=== PATIENT | female | born 1935 | race African-American/Black ===

== ENCOUNTER 2021-05-24 15:51 | Inpatient (IN) ==
[2021-05-24] MEDS ORDERED: ONDANSETRON 4 MG/2 ML VIAL ONE (16:15)
[2021-05-24] MEDS ORDERED: NITROGLYCERIN 2% OINT 1 INCH/GM PACK TOP ONE (16:19)
[2021-05-24] MEDS ORDERED: MORPHINE 4 MG/1 ML VIAL ONE (16:20)
[2021-05-24] MEDS ORDERED: MORPHINE 4 MG/1 ML VIAL IV STA (16:25)
[2021-05-24] MEDS ORDERED: NITROGLYCERIN 2% OINT 1 INCH/GM PACK TOP STA (16:25)
[2021-05-24 16:32] LABS: ABG Base Excess -5.6 MMOL/L (-2.5-2.5); ABG HCO3 19.7 MMOL/L (20-26); ABG Oxygen Saturation 88.3 % (95-100); ABG PCO2 64.8 MM HG (35-48); ABG PO2 73.4 MM HG (80-95); ABG TCO2 22.6 MMOL/L (23-27)
[2021-05-24 16:34] LABS: ABG PH 7.172 (7.35-7.45)
[2021-05-24] MEDS ORDERED: FUROSEMIDE 100 MG/10 ML VIAL IV STA (16:39)
[2021-05-24] MEDS ORDERED: ROCURONIUM 100 MG/10 ML VIAL IV ONE (16:50)
[2021-05-24] MEDS ORDERED: ETOMIDATE 20 MG/10 ML VIAL IV ONE (16:50)
[2021-05-24] MEDS ORDERED: ROCURONIUM 100 MG/10 ML VIAL IV STA (17:19)
[2021-05-24] MEDS ORDERED: ONDANSETRON 4 MG/2 ML VIAL IV STA (17:19)
[2021-05-24] MEDS ORDERED: ETOMIDATE 20 MG/10 ML VIAL IV STA (17:19)
[2021-05-24 17:23] LABS: Basophils % 0.3 % (0.0-0.8); Eosinophils # 0.3 10*3/uL (0.0-0.87); Eosinophils % 3.1 % (0.00-10.9); Hematocrit 27.2 VOL% (35.7-47.0); Hemoglobin 8.5 GM/DL (12.0-16.0); Immature Granulocytes % 0.4 %; Immature Granulocytes Absolute 0.04 #; Lymphocytes # 0.6 10*3/uL (1.4-4.0); Lymphocytes % 5.3 % (21.3-54.2); Mean Corpuscular HGB Conc 31.3 GM/DL (32-36); Mean Corpuscular Volume 102.6 FL (87-102); Mean Platelet Volume 10.5 FL (9.6-12.0); Monocytes % 3.1 % (1.7-12.7); Neutrophils % 87.8 % (38.7-73.9); Platelet Count 199 T/CUMM (130-400); Red Blood Count 2.65 MC/CUMM (3.8-5.5); Red Cell Distribution Width 15.9 % (9.3-17.3); White Blood Count 10.6 T/CUMM (4-12)
[2021-05-24 17:42] LABS: INR 1.3; PT Patient Result 13.9 SECS (10.5-12.0)
[2021-05-24] MEDS ORDERED: ALBUTEROL 2.5 MG/3 ML NEB RESP TX PRN (17:42)
[2021-05-24] MEDS ORDERED: ACETAMINOPHEN 325 MG TABLET PO PRN (17:42)
[2021-05-24] MEDS ORDERED: LACTULOSE 20 GM/30 ML UDCUP PO PRN (17:42)
[2021-05-24 17:43] LABS: Albumin 3.4 G/DL (3.4-5.0); Bilirubin,Total 0.5 MG/DL (0.2-1.0); Calcium 8.3 MG/DL (8.5-10.1); Osmolality,Calculated 303.4 MOS/KG (273-304); Potassium 4.1 MMOL/L (3.5-5.1); Total Protein 7.3 G/DL (6.4-8.2)
[2021-05-24 18:02] LABS: ABG HCO3 21.9 MMOL/L (20-26); ABG PCO2 32.7 MM HG (35-48); ABG PH 7.414 (7.35-7.45); ABG TCO2 19.4 MMOL/L (23-27)
[2021-05-24] MEDS: methylPREDNISolone SOD SUC 40 MG/1 ML VIAL IV SCH (18:05)
[2021-05-24] MEDS: PANTOPRAZOLE 40 MG VIAL IV SCH (18:08)
[2021-05-24 18:17] LABS: Bacteria,Urine Occasional /HPF (Few); Bilirubin,Urine Negative (Negative); Blood, Urine Negative (Negative); Glucose,Urine (UA) 50 mg/dL (Negative); Hyaline Casts,Urine 1 /LPF (0-3); Ketones,Urine Negative (Negative); Mucus,Urine Occasional /LPF (Occasional); Nitrite,Urine Negative (Negative); Protein,Urine 100 MG/DL; RBC,Urine 1 /HPF (0-4); Squamous Epithelial Cell,Urine Occasional /HPF (0-10); Urine Appearance Slightly Hazy (Clear); Urine Color Yellow (Yellow); Urine Specific Gravity 1.011 (1.001-1.035); Urine Urobilinogen < 2.0 EU/DL (0.2-1.0)
[2021-05-24] MEDS ORDERED: FUROSEMIDE 100 MG/10 ML VIAL IV ONE (18:18)
[2021-05-24] MEDS ORDERED: MAGNESIUM SULF RIDER 2 GM/50 ML PREMIX IV PRN (18:18)
[2021-05-24] MEDS ORDERED: MAGNESIUM SULF RIDER 4 GM/100 ML PREMIX IV PRN (18:18)
[2021-05-24] MEDS ORDERED: FUROSEMIDE 40 MG/4 ML VIAL IV STA (18:21)
[2021-05-24] MEDS ORDERED: HEPARIN DRIP 25,000 UNITS/500 ML PREMIX IV SCH (18:30)
[2021-05-24] MEDS ORDERED: HEPARIN 5,000 UNIT/1 ML VIAL SUBCUT SCH (18:30)
[2021-05-24] MEDS: ALBUTEROL/IPRATROPIUM 3 ML NEB RESP TX SCH (19:51)
[2021-05-24] MEDS: SODIUM BICARBONATE 650 MG TABLET PO SCH (20:12)
[2021-05-24] MEDS: NIFEdipine 10 MG CAPSULE PO SCH (20:12)
[2021-05-24] MEDS: hydrALAZINE 20 MG/1 ML VIAL IV PRN (20:12)
[2021-05-24] MEDS: carvediloL 25 MG TABLET PO SCH (20:13)
[2021-05-24] MEDS: ATORVASTATIN 40 MG TABLET PO SCH (20:13)
[2021-05-24] MEDS: MORPHINE 2 MG/1 ML SYRINGE IV PRN (21:21)
[2021-05-24 23:50] LABS: Hepatitis B Core IgM Quant < 0.05 Index; Hepatitis B Surface Ag Quant < 0.10 Index; Hepatitis B Surface Ag Result Non-Reactive (NonReactive); Hepatitis C Virus Ab Quant 0.07 Index; Hepatitis C Virus Ab Result Non-Reactive (NonReactive)
[2021-05-25] MEDS: methylPREDNISolone SOD SUC 40 MG/1 ML VIAL IV SCH ×3 (01:21→18:15)
[2021-05-25] MEDS: ALBUTEROL/IPRATROPIUM 3 ML NEB RESP TX SCH ×4 (01:32→19:13)
[2021-05-25] MEDS: MORPHINE 2 MG/1 ML SYRINGE IV PRN (03:21)
[2021-05-25 03:36] LABS: Basophils % 0.1 % (0.0-0.8); Hematocrit 23.6 VOL% (35.7-47.0); Hemoglobin 7.9 GM/DL (12.0-16.0); Immature Granulocytes % 0.5 %; Immature Granulocytes Absolute 0.05 #; Lymphocytes # 0.4 10*3/uL (1.4-4.0); Lymphocytes % 3.8 % (21.3-54.2); Mean Corpuscular HGB Conc 33.5 GM/DL (32-36); Mean Corpuscular Volume 97.5 FL (87-102); Mean Platelet Volume 11.9 FL (9.6-12.0); Monocytes % 4.4 % (1.7-12.7); Neutrophils % 91.2 % (38.7-73.9); Platelet Count 199 T/CUMM (130-400); Red Blood Count 2.42 MC/CUMM (3.8-5.5); Red Cell Distribution Width 15.6 % (9.3-17.3); White Blood Count 9.7 T/CUMM (4-12)
[2021-05-25 04:14] LABS: Hypochromasia 1+; Lymphocytes 4 % (20-55); Microcytosis 1+; Platelet Estimate Adequate; Segmented Neutrophils 92 % (50-85); Total Cells Counted 100
[2021-05-25 04:17] LABS: Albumin 3.2 G/DL (3.4-5.0); Bilirubin,Total 0.8 MG/DL (0.2-1.0); Calcium 8.9 MG/DL (8.5-10.1); Osmolality,Calculated 300.1 MOS/KG (273-304); Potassium 4.3 MMOL/L (3.5-5.1); Risk Ratio 2.22; Thyroid Stimulating Hormone 0.77 uIU/ml (0.358-3.74); Total Protein 7.1 G/DL (6.4-8.2); VLDL Cholesterol 12.6 MG/DL
[2021-05-25 04:36] LABS: ABG Base Excess -1.6 MMOL/L (-2.5-2.5); ABG HCO3 19.8 MMOL/L (20-26); ABG Oxygen Saturation 99.2 % (95-100); ABG PCO2 22.8 MM HG (35-48); ABG PH 7.557 (7.35-7.45); ABG PO2 299.1 MM HG (80-95); ABG TCO2 20.5 MMOL/L (23-27); Allen Test Positive; Pt O2 Delivery Device Ventilator
[2021-05-25] MEDS: hydrALAZINE 20 MG/1 ML VIAL IV PRN (05:07)
[2021-05-25] MEDS: CHOLECALCIFEROL 1,000 UNIT TABLET PO SCH (08:15)
[2021-05-25] MEDS: calcitrioL 0.25 MCG CAPSULE PO SCH (08:15)
[2021-05-25] MEDS: carvediloL 25 MG TABLET PO SCH ×2 (08:15→22:01)
[2021-05-25] MEDS: ASPIRIN CHEW 81 MG TABLET PO SCH (08:15)
[2021-05-25] MEDS: FUROSEMIDE 40 MG/4 ML VIAL IV SCH ×2 (08:15→16:11)
[2021-05-25] MEDS: FERROUS SULFATE 325 MG TABLET PO SCH (08:15)
[2021-05-25] MEDS: NIFEdipine 10 MG CAPSULE PO SCH ×2 (08:15→23:50)
[2021-05-25] MEDS: SODIUM BICARBONATE 650 MG TABLET PO SCH ×2 (08:15→22:01)
[2021-05-25] MEDS: PANTOPRAZOLE 40 MG VIAL IV SCH (18:15)
[2021-05-25] MEDS: ATORVASTATIN 40 MG TABLET PO SCH (22:02)
[2021-05-26] MEDS: ALBUTEROL/IPRATROPIUM 3 ML NEB RESP TX SCH ×4 (02:10→20:24)
[2021-05-26] MEDS: methylPREDNISolone SOD SUC 40 MG/1 ML VIAL IV SCH ×3 (02:30→18:54)
[2021-05-26 02:41] LABS: ABG Base Excess -0.9 MMOL/L (-2.5-2.5); ABG HCO3 23.7 MMOL/L (20-26); ABG Oxygen Saturation 99.9 % (95-100); ABG PCO2 33.6 MM HG (35-48); ABG TCO2 21.2 MMOL/L (23-27)
[2021-05-26 05:52] LABS: Hematocrit 25.9 VOL% (35.7-47.0); Immature Granulocytes % 0.8 %; Immature Granulocytes Absolute 0.09 #; Lymphocytes # 0.2 10*3/uL (1.4-4.0); Lymphocytes % 1.9 % (21.3-54.2); Mean Corpuscular HGB Conc 30.9 GM/DL (32-36); Mean Corpuscular Volume 102.8 FL (87-102); Mean Platelet Volume 11.6 FL (9.6-12.0); Neutrophils % 93.3 % (38.7-73.9); Platelet Count 193 T/CUMM (130-400); Red Blood Count 2.52 MC/CUMM (3.8-5.5); Red Cell Distribution Width 16.2 % (9.3-17.3); White Blood Count 11.4 T/CUMM (4-12)
[2021-05-26 06:14] LABS: Anisocytosis 2+; Band Neutrophils 1 % (0-10); Eosinophils 1 % (0-10); Lymphocytes 3 % (20-55); Macrocytosis 1+; Platelet Estimate Normal; Segmented Neutrophils 92 % (50-85); Total Cells Counted 100
[2021-05-26 06:15] LABS: Hypersegmented Neutrophil SLIGHT; Poikilocytosis Slight
[2021-05-26 06:26] LABS: Albumin 2.9 G/DL (3.4-5.0); Bilirubin,Total 0.5 MG/DL (0.2-1.0); Calcium 8.2 MG/DL (8.5-10.1); Potassium 4.5 MMOL/L (3.5-5.1); Total Protein 6.9 G/DL (6.4-8.2)
[2021-05-26] MEDS: calcitrioL 0.25 MCG CAPSULE PO SCH (08:49)
[2021-05-26] MEDS: ASPIRIN CHEW 81 MG TABLET PO SCH (08:49)
[2021-05-26] MEDS: FERROUS SULFATE 325 MG TABLET PO SCH (08:49)
[2021-05-26] MEDS: CHOLECALCIFEROL 1,000 UNIT TABLET PO SCH (08:49)
[2021-05-26] MEDS: NIFEdipine 10 MG CAPSULE PO SCH ×2 (08:49→21:06)
[2021-05-26] MEDS: carvediloL 25 MG TABLET PO SCH ×2 (08:49→21:06)
[2021-05-26] MEDS: SODIUM BICARBONATE 650 MG TABLET PO SCH ×2 (08:49→21:05)
[2021-05-26] MEDS: FUROSEMIDE 40 MG/4 ML VIAL IV SCH (08:51)
[2021-05-26] MEDS: ATORVASTATIN 40 MG TABLET PO SCH (21:05)
[2021-05-27] MEDS: ALBUTEROL/IPRATROPIUM 3 ML NEB RESP TX SCH ×4 (00:37→19:31)
[2021-05-27] MEDS: methylPREDNISolone SOD SUC 40 MG/1 ML VIAL IV SCH (02:55)
[2021-05-27 05:35] LABS: Basophils % 0.1 % (0.0-0.8); Hematocrit 23.3 VOL% (35.7-47.0); Hemoglobin 7.7 GM/DL (12.0-16.0); Immature Granulocytes % 0.8 %; Immature Granulocytes Absolute 0.11 #; Lymphocytes # 0.3 10*3/uL (1.4-4.0); Lymphocytes % 2.5 % (21.3-54.2); Mean Corpuscular Volume 99.6 FL (87-102); Mean Platelet Volume 11.7 FL (9.6-12.0); Neutrophils % 90.6 % (38.7-73.9); Platelet Count 194 T/CUMM (130-400); Red Blood Count 2.34 MC/CUMM (3.8-5.5); Red Cell Distribution Width 15.8 % (9.3-17.3); White Blood Count 13.3 T/CUMM (4-12)
[2021-05-27 06:00] LABS: Lymphocytes 4 % (20-55); Platelet Estimate Normal; Segmented Neutrophils 90 % (50-85); Total Cells Counted 100
[2021-05-27 06:01] LABS: Anisocytosis 1+; Macrocytosis 1+; Poikilocytosis Slight; Spherocytes Few
[2021-05-27 06:13] LABS: Calcium 7.5 MG/DL (8.5-10.1); Osmolality,Calculated 306.5 MOS/KG (273-304); Potassium 4.7 MMOL/L (3.5-5.1)
[2021-05-27] MEDS: calcitrioL 0.25 MCG CAPSULE PO SCH (08:38)
[2021-05-27] MEDS: SODIUM BICARBONATE 650 MG TABLET PO SCH ×2 (08:38→20:49)
[2021-05-27] MEDS: CHOLECALCIFEROL 1,000 UNIT TABLET PO SCH (08:38)
[2021-05-27] MEDS: FERROUS SULFATE 325 MG TABLET PO SCH (08:39)
[2021-05-27] MEDS: ASPIRIN CHEW 81 MG TABLET PO SCH (08:39)
[2021-05-27] MEDS: PANTOPRAZOLE 40 MG TABLET PO SCH (08:39)
[2021-05-27] MEDS: NIFEdipine 10 MG CAPSULE PO SCH (08:39)
[2021-05-27] MEDS: FUROSEMIDE 40 MG TABLET PO SCH (08:39)
[2021-05-27] MEDS: carvediloL 25 MG TABLET PO SCH ×2 (08:39→20:49)
[2021-05-27] MEDS: ATORVASTATIN 40 MG TABLET PO SCH (20:49)
[2021-05-28 05:32] LABS: Basophils % 0.1 % (0.0-0.8); Eosinophils % 0.4 % (0.00-10.9); Hematocrit 22.6 VOL% (35.7-47.0); Hemoglobin 7.5 GM/DL (12.0-16.0); Immature Granulocytes % 0.4 %; Immature Granulocytes Absolute 0.04 #; Lymphocytes # 1.3 10*3/uL (1.4-4.0); Lymphocytes % 12.1 % (21.3-54.2); Mean Corpuscular HGB Conc 33.2 GM/DL (32-36); Mean Corpuscular Volume 98.3 FL (87-102); Mean Platelet Volume 11.6 FL (9.6-12.0); Monocytes % 10.9 % (1.7-12.7); Neutrophils % 76.1 % (38.7-73.9); Platelet Count 199 T/CUMM (130-400); Red Cell Distribution Width 15.6 % (9.3-17.3); White Blood Count 10.7 T/CUMM (4-12)
[2021-05-28 06:03] LABS: Calcium 7.1 MG/DL (8.5-10.1); Osmolality,Calculated 305.9 MOS/KG (273-304); Potassium 4.9 MMOL/L (3.5-5.1)
[2021-05-28 06:09] LABS: Calcium 6.9 MG/DL (8.5-10.1); Osmolality,Calculated 308.7 MOS/KG (273-304); Potassium 5.1 MMOL/L (3.5-5.1)
[2021-05-28] MEDS: ALBUTEROL/IPRATROPIUM 3 ML NEB RESP TX SCH ×2 (07:15)
[2021-05-28] MEDS: PANTOPRAZOLE 40 MG TABLET PO SCH (09:02)
[2021-05-28] MEDS: calcitrioL 0.25 MCG CAPSULE PO SCH (09:02)
[2021-05-28] MEDS: FUROSEMIDE 40 MG TABLET PO SCH (09:02)
[2021-05-28] MEDS: CHOLECALCIFEROL 1,000 UNIT TABLET PO SCH (09:02)
[2021-05-28] MEDS: ASPIRIN CHEW 81 MG TABLET PO SCH (09:02)
[2021-05-28] MEDS: FERROUS SULFATE 325 MG TABLET PO SCH (09:02)
[2021-05-28] MEDS: SODIUM BICARBONATE 650 MG TABLET PO SCH (09:03)
[2021-05-28] MEDS: carvediloL 25 MG TABLET PO SCH (09:41)
[2021-05-28 12:18] VITALS: BP 155/59
== END 2021-05-28 12:40 | disposition home or self-care (01) | DRG 208 ==
LOC: N.ED 15:51 → N.ICU 17:42 → SUATTDRO 17:42 → N.ICU 18:30 → N.5E 05-26 19:18
PROVIDERS: ADMIT Internal Medicine; ATTEND Emergency Medicine